=== PATIENT | female | born 1985 | race Hispanic/Latino ===

== ENCOUNTER 2018-04-19 08:06 | Day surgery (SDC) | payer MEDICAID ==
[2018-04-19] MEDS ORDERED: NACL 0.9% 1000 ML 1,000 ML IV SCH (09:00)
[2018-04-19] MEDS ORDERED: DIPRIVAN 10 MG/ML IV ONE ×2 (09:28)
--- NOTE | 2018-04-19 10:00 | Operative Report ---
PREOPERATIVE DIAGNOSIS: Morbid obesity. POSTOPERATIVE DIAGNOSES: Grade A esophagitis, gastritis, duodenitis, small hiatal hernia. PROCEDURE: EGD. ANESTHESIA: MAC. COMPLICATIONS: None. SPECIMEN: None. BLEEDING: None. INDICATIONS: The patient is a 32-year-old female with a history of morbid obesity, refractory to diet and exercises. She is here for preoperative EGD for her planned operation, informed consent was obtained. DESCRIPTION OF PROCEDURE: The patient was brought to the operating suite where she was placed in the left lateral decubitus position, underwent MAC anesthesia. Bite block was placed and a timeout was called. A standard adult gastroscope was inserted into the oropharynx down on the esophagus into the stomach. She was noted to have grade A esophagitis and a small hiatal hernia on retroflexion view. She was also noted to have gastritis in the stomach and the body and the antrum, and mild duodenitis upon entry into the D1. There were no other abnormalities. The air was then desufflated. The gastroscope was removed. The patient tolerated the procedure well and transferred to the PACU in stable condition. JOB# [id number] [facility]
[2018-04-19 11:06] VITALS: BP 130/76
--- NOTE | 2018-04-19 13:55 | Anesthesia Consultation ---
Anesthesia Consult and Med Hx Date of service: 04/19/18 - Airway Anesthetic Teeth Evaluation: Good ROM Head & Neck: Adequate Mental/Hyoid Distance: Adequate Mallampati Class: Class II Intubation Access Assessment: Probably Good - Pulmonary Exam CTA: Yes - Cardiac Exam Cardiac Exam: RRR - Pre-Operative Health Status ASA Pre-Surgery Classification: ASA2 Proposed Anesthetic Plan: MAC - Cardiovascular System Hx Hypertension: Yes - Other Systems Hx Obesity: Yes (morbid obesity)
--- NOTE | 2018-04-19 13:56 | Anesthesia Day of Surgery ---
Anesthesia Day of Surgery - Day of Surgery Patient Examined: Yes Patient H&P Reviewed: Yes Patient is NPO: Yes Beta Blockers: No Cardiac Clearance: No (not required)
== END 2018-04-19 08:07 | disposition home or self-care (01) ==
LOC: GIO 08:06
PROVIDERS: ATTEND Specialist
DX: K29.90 Gastroduodenitis, unspecified, without bleeding (principal); K20.9 Esophagitis, unspecified; K44.9 Diaphragmatic hernia without obstruction or gangrene; E78.00 Pure hypercholesterolemia, unspecified; I10 Essential (primary) hypertension; E66.01 Morbid (severe) obesity due to excess calories; Z68.41 Body mass index [BMI] 40.0-44.9, adult; Z79.899 Other long term (current) drug therapy; Z87.891 Personal history of nicotine dependence; Z98.890 Other specified postprocedural states
CPT/HCPCS: 43235; J2704; J7030